=== PATIENT | female | born 1960 | race Caucasian/White ===

== ENCOUNTER 2021-09-19 00:10 | Day surgery (SDC) | payer OTHER, SELFPAY ==
[2021-09-03 13:22] VITALS: BMI 25.8
--- NOTE | 2021-09-18 11:58 | PM.HPGS ---
History of Present Illness History of Present Illness Consent: Risks, benefits, and alternatives have been discussed and questions answered. Patient agrees to proceed with procedure. Chief complaint: neoplasm screening Narrative: Navya Atkins is a 61 year old female Referred for colon cancer screening. It has been 10 years since her last exam Review of Systems Review of Systems: All systems reviewed & are unremarkable except as noted in HPI and below PMFSH Past Medical History Medical History BMI 27.0-27.9,adult Insomnia Psoriasis Screen for colon cancer Screening for lipid disorders Family History Family History Other Cerebrovascular accident Depression Diabetes mellitus Social History Social History Smoking status: Former smoker Alcohol intake: never Living arrangements: with family Spiritual care concerns: No Meds Home Medications and Allergies Home Medications Medication Instructions Recorded Confirmed Type amitriptyline 50 mg tablet 50 mg PO QHS 08/04/21 09/19/21 History ascorbic acid (vitamin C) 500 mg PO DAILY 09/03/21 09/19/21 History calcium 600 mg PO DAILY 09/03/21 09/19/21 History cholecalciferol (vitamin D3) 25 mcg PO DAILY 09/03/21 09/19/21 History Allergies Allergy/AdvReac Type Severity Reaction Status Date / Time No Known Allergies Allergy Verified 09/19/21 08:13 Exam Resp: Auscultation: clear to auscultation bilaterally Cardio: Rate: regular rate Rhythm: regular rhythm GI: GI Palp: Yes Soft to palpation and No Tenderness to palpation present (GI) Assessment and Plan Assessment and plan (1) Screen for colon cancer: Code(s): Z12.11 - Encounter for screening for malignant neoplasm of colon Status: Acute Assessment and Plan: Colonoscopy with possible biopsy or polypectomy or cautery or injection of substances.
--- NOTE | 2021-09-19 07:28 | P.PNAN_ITS ---
Anes - Initial Pre Proc Eval Procedure: Operation Date: 09/19/21 09:30 Proposed Procedures p Screening Colonoscopy - Hussain Newsome MD Date/Time: 09/19/21 07:28 Surgeon: Hussain Newsome MD Pre Op Diagnosis: neoplasm screening Patient Data Age: 61 Gender: F Height: 1.57 m Weight: 64 kg Allergies Allergy/AdvReac Type Severity Reaction Status Date / Time No Known Allergies Allergy Verified 09/19/21 08:13 Home Medications Medication Instructions Recorded Confirmed Type amitriptyline 50 mg tablet 50 mg PO QHS 08/04/21 09/19/21 History ascorbic acid (vitamin C) 500 mg PO DAILY 09/03/21 09/19/21 History calcium 600 mg PO DAILY 09/03/21 09/19/21 History cholecalciferol (vitamin D3) 25 mcg PO DAILY 09/03/21 09/19/21 History Patient hx anesthesia problems: none Family hx anesthesia problems: none Results Review: All pre-operative results and documents have been reviewed as part of the pre-operative evaluation. [facility] [place] Past Medical History Medical History (Updated 09/19/21 @ 07:28 by Santi Coleman DO) BMI 27.0-27.9,adult Insomnia Psoriasis Screen for colon cancer Screening for lipid disorders Family History Family History Other Cerebrovascular accident Depression Diabetes mellitus Social History Social History Smoking status: Former smoker Alcohol intake: never Living arrangements: with family Spiritual care concerns: No Anes - Eval Final PreProcedure Day of Procedure 09/19/21 07:28 Patient weight: overweight Heart: regular rate and rhythm Lungs: clear to auscultation and normal air movement Airway: Mallampati scale class II Neurological: alert and oriented Last oral intake: >/= 8 hours ASA classification: II Emergent: no Anesthetic plan: proceed Anesthesia type and monitoring: general GIVS and standard monitoring Results Review: All pre-operative results and documents have been reviewed as part of the pre-operative evaluation. Informed Consent: The patient's anesthetic plan and its attendant risks and benefits were discussed with the patient/family/POA. Questions were solicited and answers provided to the satisfaction of the patient/family/POA.
[2021-09-19 08:13] VITALS: BP 140/93; PULSE 85; RESP 16; TEMP 36; O2SAT 100
[2021-09-19] MEDS: LACTATED RINGERS 1,000 ML 150 ML IV CONT (08:17)
[2021-09-19 09:28] VITALS: BP 112/64; PULSE 71; RESP 17; O2SAT 98
[2021-09-19 09:38] VITALS: BP 118/75; PULSE 71; RESP 20; O2SAT 100
[2021-09-19 09:48] VITALS: BP 128/80; PULSE 63; RESP 20; O2SAT 98
== END 2021-09-19 10:07 | disposition home or self-care (01) ==
PROVIDERS: PCP Family Medicine; Visit Provider Internal Medicine Gastroenterology
PROC: 0DJD8ZZ Inspection of Lower Intestinal Tract, Via Natural or Artificial Opening Endoscopic (ICD-10-PCS; CPT 45378; principal; 2021-09-19 09:30)
DX: Z12.11 Encounter for screening for malignant neoplasm of colon (principal); K57.30 Diverticulosis of large intestine without perforation or abscess without bleeding; G47.00 Insomnia, unspecified; L40.9 Psoriasis, unspecified; Z87.891 Personal history of nicotine dependence
CPT/HCPCS: 45378; J2704; J7120

== ENCOUNTER 2022-04-09 09:45 | Outpatient (CLI) | payer OTHER, SELFPAY ==
--- NOTE | ~2022-04-09 | DEXA_ITS ---
Bone Density Report Name: KAHLIL HARRINGTON Age: 61 Sex: Female Ethnicity: White Date of : 1960 Indication: postmenopausal; screening for osteoporosis; Referring Provider: JESUS, JESSI Santillan Study: Bone densitometry was performed. Exam Date: April 09, 2022 Accession number: [id number] Bone Density: Region BMD T-score Z-score Classification AP Spine(L1-L4) 0.863 -1.7 -0.2 Osteopenia Femoral Neck (Left) 0.617 -2.1 -0.7 Osteopenia Total Hip (Left) 0.768 -1.4 -0.4 Osteopenia Femoral Neck (Right) 0.625 -2.0 -0.7 Osteopenia Total Hip (Right) 0.733 -1.7 -0.7 Osteopenia Total Hip Mean 0.751 -1.6 -0.6 Osteopenia World Health Organization criteria for BMD impression classify patients as: Normal (T-score at or above -1.0), Osteopenia (T-score between -1.0 and -2.5), or Osteoporosis (T-score at or below -2.5). 10-year Fracture Risk(1): Major Osteoporotic Fracture 10% Hip Fracture 1.4% Reported Risk Factors: [place] (), Neck BMD=0.617, BMI=24.7 (1) FRAX(R) Version 3.08. Fracture probability calculated for an untreated patient. Fracture probability may be lower if the patient has received treatment. Clinical Information Provided by Patient: Has used the following medications: Vitamin D, Calcium Patient maximum height was 62 Menopause Age: 50 Drinks caffeinated beverages Onset of menses at age 13 Number of children 3 Impression: The patient has low bone mass, based on the Left Femoral Neck T-score. The patient has an estimated ten-year risk of hip fracture of 1.4% and an estimated ten-year risk of major fracture of 10%, based on the WHO FRAX algorithm. Discussion: BONE DENSITY IS LOW AT ONE OR MORE SKELETAL SITES. This patient's lowest T-score is low at one or more skeletal sites. It meets the World Health Organization's (WHO) criteria for ?low bone mass? (T-score between -1.0 and -2.5). The patient's 10-year risk of fracture as calculated by FRAX is less than the threshold where pharmacological therapy is recommended by the National Osteoporosis Foundation (NOF). However, all treatment decisions require clinical judgment and consideration of individual patient factors, including patient preferences, comorbidities, previous drug use, risk factors not captured in the FRAX model (e.g., frailty, falls, vitamin D deficiency, increased bone turnover, interval significant decline in bone density) and possible under or overestimation of fracture risk by FRAX. The patient should follow a healthful lifestyle (good nutrition with adequate calcium and vitamin D, and appropriate weight-bearing exercise). Follow-Up: Consider repeating this study in 2 to 3 years to reassess this patient's status, or sooner if there is some new clinical indication. Reported by: LARA on 04/09/2022 10:22:00
== END 2022-04-09 09:46 | disposition home or self-care (01) ==
PROVIDERS: PCP Family Medicine; Visit Provider Nurse Practitioner Obstetrics & Gynecology
DX: Z78.0 Asymptomatic menopausal state (principal); M85.89 Other specified disorders of bone density and structure, multiple sites
CPT/HCPCS: 77080